=== PATIENT | female | born 1935 | race Caucasian/White ===

== ENCOUNTER 2022-02-14 12:34 | Emergency (ER) | payer MEDICARE, OTHER, SELFPAY ==
--- NOTE | ~2022-02-14 | XR_ITS ---
EXAMINATION: XR foot RT 2V DATE: 02/14/2022 14:05 INDICATION: Right foot pain. Second digit redness and swelling. TECHNIQUE: 2 views of right foot were obtained. COMPARISON: None. FINDINGS: Bone alignment is normal. No fracture. There is moderate osteoarthritis of first metatarsop halangeal joint and mild osteoarthritis of some of the interphalangeal joints and midfoot joints. The re are enthesophytes at the posterior and plantar aspects of calcaneal tuberosity. IMPRESSION: 1. Polyarticular osteoarthritis. Reviewed, dictated and finalized at location B.
[2022-02-14 12:37] VITALS: BP 124/72; PULSE 90; RESP 16; TEMP 36.2; O2SAT 97
--- NOTE | 2022-02-14 12:49 | PC.NURSE ---
2+ pedal pulses found via Doppler on R lower leg
--- NOTE | 2022-02-14 14:28 | ED.LOWEXIN ---
HPI - Extremity Injury (Lower) General Chief Complaint: Extremity Injury, Lower Stated Complaint: i have a sore toe Time Seen by Provider: 02/14/22 13:33 Source: patient Mode of arrival: ambulatory Limitations: no limitations History of Present Illness HPI Narrative: 86-year-old female presents today with complaints of right second toe redness and pain that she noted on Monday. Patient was out of town visiting her daughter who noticed that patient was uncomfortable. Patient showed her toe when she had concerns for circulation issues. Per patient daughter could not find a pedal pulse. Patient denies any numbness, tingling, cool extremity. Patient states the toe actually appears better than it did this weekend. Patient with minimal pain with palpation or wearing certain shoes. Related Data Allergies Allergy/AdvReac Type Severity Reaction Status Date / Time Sulfa (Sulfonamide Allergy Mild Unverified 12/17/08 10:51 Antibiotics) Review of Systems Review of Systems: CONSTITUTIONAL: Denies fever, chills, or sweats. EYES: Denies visual changes, redness, or discharge. ENT: Denies rhinorrhea, congestion, sore throat, or otalgia. CARDIOVASCULAR: Denies chest pain, palpitations, or edema. RESPIRATORY: Denies cough or dyspnea. GASTROINTESTINAL: Denies abdominal pain, nausea, vomiting, or diarrhea. GENITOURINARY: Denies dysuria or hematuria. SKIN: Right second toe redness and pain with palpation. Denies rash or itching. MUSCULOSKELETAL: Denies back pain, joint pain, or myalgia. Denies calf pain, or leg swelling. NEUROLOGIC: Denies headache, numbness, dizziness, or weakness. PSYCHIATRIC: Denies anxiety or depression. Exam Narrative: GENERAL: Well-appearing, well-nourished, and in no acute distress. HEAD: Normocephalic, atraumatic. EYES: PERRLA and EOMI. NECK: Supple. No adenopathy or masses. No carotid bruits or JVD CHEST: Clear to auscultation. No respiratory distress. No wheezes rales or rhonchi HEART: Regular rate and rhythm. No murmur heard. Normal peripheral pulses. ABDOMEN: Soft, nontender, nondistended, normal active bowel sounds. EXTREMITIES: Right pedal pulse +1. Right foot warm to touch and pink. Right second toe with minimal erythema to medial side of nail bed. No obvious ingrown toenail or paronychia noted. Tenderness to palpation. No drainage noted. SKIN: See extremity note. Warm, dry, no rash. NEURO: No focal deficits. Alert and oriented x3. PSYCH: Normal mood and affect. Course Course Emergency Course: Patient has noted improvement over her toes since she initially noted concerned on Monday. Patient with palpable pedal pulse at this time. Patient instructed to follow-up with primary for further management. She is also instructed to continue her penicillin which she was taking for dental issues. Also suggested foot soaks with Epson salt. Vital Signs Vital signs: Vital Signs Temperature 36.2 C L 02/14/22 12:37 Pulse Rate 90 02/14/22 12:37 Respiratory Rate 16 02/14/22 12:37 Blood Pressure 124/72 02/14/22 12:37 Pulse Oximetry 97 02/14/22 12:37 Temperature 36.2 C L 02/14/22 12:37 Pulse Rate 90 02/14/22 12:37 Respiratory Rate 16 02/14/22 12:37 Blood Pressure 124/72 02/14/22 12:37 Pulse Oximetry 97 02/14/22 12:37 MDM - Extremity Injury (Lower) MDM Narrative Medical decision making narrative: 86-year-old female HPI as noted. Patient was instructed to come here due to family not being able to feel a pedal pulse. Patient states her toe actually is better now than it was this weekend. Pedal pulse +1. Foot is warm and pink in color. No signs of cyanosis. Small amount of redness noted to medial side of second toenail. Patient currently on antibiotics. Suspect possible cellulitis versus ingrown toenail. Continue antibiotics follow-up with primary Differential Diagnosis Differential diagnosis: Likely other (PVD, cellulitis, ingrown toenail, toe fracture) Imaging Data
[2022-02-14 14:46] VITALS: BP 120/74; PULSE 84; RESP 16; TEMP 36.4; O2SAT 100
== END 2022-02-14 14:48 | disposition home or self-care (01) ==
PROVIDERS: Emergency Provider Nurse Practitioner Family
DX: M79.674 Pain in right toe(s) (principal)
CPT/HCPCS: 73620; 99283